=== PATIENT | female | born 1965 | race Caucasian/White ===

== ENCOUNTER → 2020-09-07 | Outpatient (CLI) | payer BC, OTHER ==
[~2020-09-07] MED LIST: BREO ELLIPTA 11 EACH INH; ESCITALOPRAM OX20 MG PO; INDERAL TAB 4040 MG PO; IPRAT-ALBUT 0.5-3 ML INH; SYNTHROID75 MCG PO; TRETINOIN45 G3 TD; VENTOLIN HFA 66.7 GM INH
[2020-09-07 10:05] LABS: HEMOGLOBIN 16.7 gm/dl (12.3-15.3); RED BLOOD COUNT 5.37 M/UL (4.00-5.10); WHITE BLOOD COUNT 9.8 K/UL (4.5-11.0)
[2020-09-07 10:27] LABS: BUN/CREATININE RATIO 30 (0-10)
== END ==
LOC: LAB 09:35
PROVIDERS: Family Medicine
DX: E78.2 Mixed hyperlipidemia (principal); E03.9 Hypothyroidism, unspecified
CPT/HCPCS: 36415; 80053; 80061; 84439; 84443; 85027

== ENCOUNTER → 2021-09-08 | Day surgery (SDC) | payer BC ==
[~2021-09-08] MED LIST changes: +ANORO ELLIPTA1 EACH INH
== END | disposition home or self-care (01) ==
LOC: OR 06:08
DX: Z12.11 Encounter for screening for malignant neoplasm of colon (principal); Z86.010 Personal history of colon polyps; E88.01 Alpha-1-antitrypsin deficiency; J42 Unspecified chronic bronchitis; K21.9 Gastro-esophageal reflux disease without esophagitis; E03.9 Hypothyroidism, unspecified; E78.2 Mixed hyperlipidemia; Z88.0 Allergy status to penicillin; Z87.891 Personal history of nicotine dependence; Z20.822 Contact with and (suspected) exposure to COVID-19
CPT/HCPCS: J2704; J7120